=== PATIENT | male | born 1980 ===

== ENCOUNTER → 2021-12-24 12:05 | Outpatient (BNVA) | payer SELFPAY | PROVIDERS: Visit Provider Nurse Practitioner | DX: N39.0 Urinary tract infection, site not specified (principal); Z20.2 Contact with and (suspected) exposure to infections with a predominantly sexual mode of transmission | CPT/HCPCS: 81003; 87491; 87591 ==

== ENCOUNTER → 2022-05-25 17:39 | Outpatient (BNVA) | payer SELFPAY | PROVIDERS: Visit Provider Registered Nurse Neonatal Intensive Care | DX: Z20.2 Contact with and (suspected) exposure to infections with a predominantly sexual mode of transmission (principal); J01.90 Acute sinusitis, unspecified | CPT/HCPCS: 81000; 87491; 87591 ==